=== PATIENT | female | born 1965 | race Caucasian/White ===

== ENCOUNTER 2018-03-17 20:41 | Emergency (ER) | payer BC, SELFPAY ==
[2018-03-17] MEDS ORDERED: Lidocaine 1% PF 5 ML VIAL ONE (21:13)
[2018-03-17] MEDS ORDERED: cefTRIAXone\\ROCEPHIN 1 GM VIAL ONE (21:13)
[2018-03-17] MEDS ORDERED: Ketorolac Tromethamine 30 MG/ML VIAL ONE (21:32)
--- NOTE | 2018-03-17 22:32 | RAD ---
RIGHT INDEX FINGER THREE VIEWS: 03/17/2018 HISTORY: Dog bite. Pain. COMPARISON: None. FINDINGS: There is soft tissue swelling involving the index finger with no evidence for fracture/dislocation or radiopaque foreign body. IMPRESSION: Soft tissue swelling. POS: SOL
== END 2018-03-17 22:09 | disposition home or self-care (01) ==
LOC: SCSER 20:41
DX: L03.011 Cellulitis of right finger (principal); G43.909 Migraine, unspecified, not intractable, without status migrainosus; E03.9 Hypothyroidism, unspecified; F41.9 Anxiety disorder, unspecified; F32.9 Major depressive disorder, single episode, unspecified; Z87.891 Personal history of nicotine dependence; Z79.899 Other long term (current) drug therapy
CPT/HCPCS: 96372; J0696; J1885; J2001